=== PATIENT | male | born 1995 | race Hispanic/Latino ===

== ENCOUNTER 2022-08-11 19:54 | Emergency (ER) | payer OTHER ==
[~2022-08-11] VITALS: Ht 167.6 cm; Wt 90.3 kg
[2022-08-11] MEDS ORDERED: IBUPROFEN 600 MG TABLET PO ONE (21:00)
[2022-08-11] MEDS ORDERED: TETANUS/DIPHTHERIA TOXOID [ADULT] 0.5 ML VIAL IM ONE (21:00)
[2022-08-11 21:50] VITALS: BP 136/84
[2022-08-11] MEDS ORDERED: CEFAZOLIN SODIUM 1 GM VIAL IM SCH (22:00)
== END 2022-08-11 22:37 | disposition home or self-care (01) ==
LOC: EDH 19:54
DX: L03.116 Cellulitis of left lower limb (principal); M25.572 Pain in left ankle and joints of left foot
CPT/HCPCS: 99284; 90714; 73610; 73620; 96372; 90471; J0690